=== PATIENT | female | born 1965 | race Caucasian/White ===

== ENCOUNTER 2019-07-16 10:57 | Emergency (ER) | payer OTHER, BC ==
[2019-07-16 11:02] VITALS: BP 159/91; TEMP 98.8; BMI 31.6
--- NOTE | 2019-07-16 11:20 | PDOC ---
History of Present Illness - General Chief Complaint: Injury Stated Complaint: fall foot injury Time Seen by Provider: 07/16/19 10:59 - History of Present Illness Initial Comments: 07/16/19 12:07 Chief complaint: Pain in left great toe and right upper arm. HPI: Tripped in a ditch yesterday and fell, injuring her toe and her right shoulder. Pain has persisted. She is ambulating and using her right arm, but both are painful. Review of systems: Denies injury or pain to the head neck chest abdomen spine pelvis or other extremities. Denies loss of consciousness, headache, chest pain , shortness of breath, abdominal pain, nausea, vomiting, diarrhea, dysuria or frequency, vaginal bleeding or discharge. Past medical history: The patient is somewhat mentally challenged, as is her mother, and primary physician, Dr. Goel, was contacted for more information. He has known the patient for many years, and states that the patient is mentally disabled, with anxiety which can be severe, is histrionic, and has elevated cholesterol and high blood pressure. She is on no psychiatric medication other than benzodiazepines. She is tachycardic at baseline despite verapamil therapy. Social history: Adequately functional, lives with mother, denies drugs tobacco or alcohol. Family history: Reviewed and noncontributory Physical exam: Alert and oriented, well-developed well-nourished, no acute distress, cooperative Afebrile, vital signs normal except for regular tachycardia of 119/min. Head atraumatic. PERRLA, fundi benign with sharp disc margins and good central venous pulsations, no hemorrhages or exudates, no AV nicking or arteriolar narrowing. EOMs full without diplopia, visual hernández intact to confrontation, ENT clear Neck without tenderness or deformity, full range of motion without pain Chest clear to PNA, full breath sounds bilaterally, no wheezes rales or rhonchi. No chest wall or rib cage tenderness or deformity CV S1-S2 normal without murmur rub or gallop pulses full and symmetric no JVD or edema no bruits Abdomen soft nontender without mass or organomegaly. Nondistended. Bowel sounds normal. No CVAT Skin clear, no rash, adequate turgor and wet mucous membranes Neurological C2 to 12 intact. Strength full and symmetric. No focal sensorimotor deficits. Gait stable and unimpaired Extremities: There is mild swelling, ecchymosis, and tenderness of the left great toe, primarily the proximal and distal phalanges. The MTP joint is not involved. There is no deformity, either rotational or angular. There is no sign of trauma to the other toes or the proximal foot. There is no tenderness or deformity of the ankle. There is mild tenderness over the biceps muscle, right upper arm. There is pain with abduction, though range of motion is full. There is also point tenderness over the coracoid process. Again, pulses are full, there is no limited range of motion, and there is no distal sensory or motor deficit of the right upper extremity Impression: Probable muscle strain of the right biceps and/or rotator cuff, rule out fracture. Probable fracture great toe left. Plan x-ray and further evaluation pending on results, analgesics, and orthopedic referral. Past History - Past Medical History Allergies/Adverse Reactions: Allergies Allergy/AdvReac Type Severity Reaction Status Date / Time diltiazem Allergy Severe Rash Verified 07/16/19 11:07 atenolol AdvReac Intermediate dizziness Verified 07/16/19 11:07 Cats, dust Allergy Uncoded 05/26/16 12:02 Home Medications: Ambulatory Orders Ascorbic Acid [Vitamin C] 500 mg PO DAILY tablet 10/05/15 Multivitamin [Daily Multiple Vitamin] 1 each PO DAILY tablet 10/05/15 Cholecalciferol (Vitamin D3) [Vitamin D3] 2,000 unit PO DAILY tablet 10/20/15 Pravastatin Sodium 10 mg PO DAILY 07/16/19 Verapamil HCl [Verapamil ER] 240 mg PO DAILY 07/16/19 Anemia: No Asthma: No Cancer: No Cardiac Disorders: No CVA: No COPD: No CHF: No Dementia: No Diabetes: No GI Disorders: No Disorders: No HTN: Yes Hypercholesterolemia: Yes Liver Disease: No Seizures: No Thyroid Disease: Yes (ENLARGED) Other medical history: scoliosis - Surgical History Abdominal Surgery: Yes (REPAIR UMBILICAL HERNIA 02/09/16) Appendectomy: Yes Cardiac Surgery: No Cholecystectomy: No Lung Surgery: No Neurologic Surgery: No Orthopedic Surgery: No - Psycho Social/Smoking Cessation Hx Smoking History: Never smoked Have you smoked in the past 12 months: No Hx Alcohol Use: No Drug/Substance Use Hx: No Substance Use Type: None Hx Substance Use Treatment: No *Physical Exam - Vital Signs Last Vital Signs Temp Pulse Resp BP Pulse Ox 98.8 F 119 H 19 159/91 100 07/16/19 10:58 07/16/19 10:58 07/16/19 10:58 07/16/19 10:58 07/16/19 10:58 Medical Decision Making - Medical Decision Making 07/16/19 13:07 X-rays of the right humerus including the shoulder, and left great toe, show no sign of fracture. Patient with partial relief with Tylenol. Rest, ice, elevation, and range of motion of the shoulder to avoid stiffness. Orthopedic follow-up. Adequately ambulatory in the company of mother at discharge, no significant pain or other distress. Discharge - Discharge Information Problems reviewed: Yes Clinical Impression/Diagnosis: Sprain of shoulder Qualifiers: Encounter type: initial encounter Shoulder sprain type: unspecified sprain Laterality: right Qualified Code(s): S43.401A - Unspecified sprain of right shoulder joint, initial encounter Sprain of great toe Qualifiers: Encounter type: initial encounter Laterality: left Qualified Code(s): S93.502A - Unspecified sprain of left great toe, initial encounter Condition: Stable Disposition: HOME - Admission No - Follow up/Referral Referrals: Soy Goel MD [Primary Care Provider] - 1 week Frankie Wilder MD [Staff Physician] - 1 week - Patient Discharge Instructions Patient Printed Discharge Instructions: DI for Shoulder Sprain, DI for Toe Sprain Additional Instructions: Rest ice and elevate left foot Ice right shoulder. Gentle stretching and range of motion to prevent stiffness. Tylenol as needed. See orthopedist if no improvement 5 to 7 days. - Post Discharge Activity
[2019-07-16] MEDS ORDERED: ACETAMINOPHEN 325 MG TABLET (FP) PO ONE (11:21)
[2019-07-16] MEDS ORDERED: ACETAMINOPHEN 325 MG TABLET (FP) ONE (11:23)
[2019-07-16 13:32] VITALS: PULSE 89
== END 2019-07-16 13:31 | disposition home or self-care (01) ==
LOC: FER 10:57
DX: S43.401A Unspecified sprain of right shoulder joint, initial encounter (principal); S93.502A Unspecified sprain of left great toe, initial encounter; W18.39XA Other fall on same level, initial encounter; Y93.01 Activity, walking, marching and hiking; Y92.89 Other specified places as the place of occurrence of the external cause; E78.00 Pure hypercholesterolemia, unspecified; F41.9 Anxiety disorder, unspecified; I10 Essential (primary) hypertension; F99 Mental disorder, not otherwise specified; Z88.8 Allergy status to other drugs, medicaments and biological substances; J30.81 Allergic rhinitis due to animal (cat) (dog) hair and dander; E07.9 Disorder of thyroid, unspecified; M41.9 Scoliosis, unspecified
CPT/HCPCS: 73060-TC-RT-FY; 73660-TC-LT-FY; 84703; 99282-25

== ENCOUNTER → 2022-10-31 | Day surgery (SDC) | payer BC, OTHER | END | disposition home or self-care (01) | LOC: JRADIR 11:01 | PROVIDERS: ATTEND Internal Medicine Geriatric Medicine | PROC: 0G9H3ZX Drainage of Right Thyroid Gland Lobe, Percutaneous Approach, Diagnostic (ICD-10-PCS; principal; 2022-10-31) | DX: E04.1 Nontoxic single thyroid nodule (principal) | CPT/HCPCS: 10005; 76942; 88173; 88305-TC ==

== ENCOUNTER → 2022-11-13 | Day surgery (SDC) | payer BC, OTHER | END | disposition home or self-care (01) | LOC: JRADIR 10:47 | PROVIDERS: ATTEND Internal Medicine Geriatric Medicine | PROC: 0G9K3ZX Drainage of Thyroid Gland, Percutaneous Approach, Diagnostic (ICD-10-PCS; principal; 2022-11-13) | DX: E04.1 Nontoxic single thyroid nodule (principal) | CPT/HCPCS: 10005; 76942; 88173; 88305-TC ==

== ENCOUNTER 2023-11-12 09:41 | Day surgery (SDC) | payer OTHER ==
[2023-11-07 15:05] VITALS: BMI 32.4
[2023-11-12 10:13] VITALS: RESP 18
[2023-11-12 11:34] VITALS: TEMP 98.1
[2023-11-12 11:53] VITALS: BP 110/53; PULSE 68
== END 2023-11-12 12:16 | disposition home or self-care (01) ==
LOC: FASU-ENDO 09:41
PROVIDERS: ATTEND Internal Medicine Gastroenterology
PROC: 0DJD8ZZ Inspection of Lower Intestinal Tract, Via Natural or Artificial Opening Endoscopic (ICD-10-PCS; principal; 2023-11-12 11:07)
DX: Z12.11 Encounter for screening for malignant neoplasm of colon (principal); K57.30 Diverticulosis of large intestine without perforation or abscess without bleeding